=== PATIENT | female | born 1995 ===

== ENCOUNTER 2017-08-24 18:35 | Emergency (ER) | payer BC ==
[2017-08-24 19:03] VITALS: BMI 30.7
--- NOTE | 2017-08-24 19:09 | OBHP ---
Datetime: 08/24/2017 19:06 IP Adm Impression: , intrauterine IP Chief Complaint Other: cramping Admit Comment, IP Provider: at 30.6weeks came with c/o cramping from yesterday,no ctxs, vb, lof +fm.no dysuria.pt had sex few meadows ago obhx primi pmh den med pnv all nkda psh de soc de ve closed a/p at 30+weeks r/o uti ua cont angie and efm cont close obser Pelvic Type - PN: Adequate Extremities - PN: Normal Abdomen - PN: Normal Back - PN: Normal Breast - PN: Normal Lungs - PN: Normal Heart - PN: Normal Thyroid - PN: Normal Neurologic - PN: Normal HEENT - PN: Normal General - PN: Normal FHR - Baseline A Provider: 130 Contraction Comments Provider: none Vital Signs Provider: Reviewed; Within Normal Limits NICHD Variability Prov Fetus A: Moderate 6-25bpm NICHD Accel Fetus A IP Provider: 10X10 FHR Category Provider Fetus A: Category I Dilatation, Provider: 0 Effacement, Provider: 0 Station, Provider: -3 Genitourinary Exam: Normal DTRs - PN: Normal
[2017-08-24] MEDS ORDERED: Lactated Ringer's 1,000 ML IV SCH (19:15)
[2017-08-24 20:11] LABS: SQUAMOUS EPITHIAL 8 /hpf (0-5); URINE AMORPHOUS SEDIMENT OCC /ul (<OCC); URINE BACTERIA RARE (<OCC); URINE BILIRUBIN NEGATIVE (NEGATIVE); URINE BLOOD NEGATIVE (NEGATIVE); URINE CLARITY Hazy (Clear); URINE COLOR Yellow (YELLOW); URINE GLUCOSE (UA) 2+ mg/dL (Normal); URINE LEUKOCYTE ESTERASE NEG Leu/uL (Negative); URINE PROTEIN NEGATIVE (NEGATIVE); URINE UROBILINOGEN NORMAL mg/dL (0.2-1.0)
--- NOTE | 2017-08-24 20:17 | OBDCSUM ---
Datetime: 08/24/2017 20:14 Discharged to, Provider: Home Follow up at, Provider: fátima moran Follow up in weeks, Provider: pmd Disch Activity Restrictions: Minimize stair-climbing; No sexual activity; Nothing in vagina - Interc ourse, tampons, douche Discharge Comment, Provider: ptl given po hydration f/u pmd Discharge Diagnosis Prov Other: 30week cramping nst
[2017-08-25 01:52] VITALS: BP 112/58; PULSE 113
--- NOTE | 2017-08-25 10:57 | OBHP ---
Datetime: 08/24/2017 19:06 Admit Comment, IP Provider: at 30.6weeks came with c/o cramping from yesterday,no ctxs, vb, lof +fm.no dysuria.pt had sex few [place] ago obhx primi pmh den med pnv all nkda psh de soc de ve closed a/p at 30+weeks r/o uti ua cont angie and efm cont close obser ua 2+ glu plan dc home ptl given po hydration f/u pmd dr briceño aware IP Hx Assessment: The History has been Reviewed and is Current
== END 2017-08-24 21:40 | disposition home or self-care (01) ==
LOC: C.EROB 18:35
DX: O26.893 Other specified pregnancy related conditions, third trimester (principal); R10.9 Unspecified abdominal pain; Z3A.30 30 weeks gestation of pregnancy
CPT/HCPCS: 81001; 82948; 99283; J7120

== ENCOUNTER 2017-10-25 10:07 | Inpatient (IN) | payer BC ==
[2017-10-25 10:18] VITALS: BMI 32.9
[2017-10-25] MEDS ORDERED: Sodium Citrate/Citric Acid 15 ml Sol PO ONE (10:33)
[2017-10-25] MEDS ORDERED: Lactated Ringer's 1,000 ML IV SCH (10:45)
--- NOTE | 2017-10-25 10:48 | OBADHP ---
Datetime: 10/25/2017 10:43 Admit Comment, IP Provider: 24 @ 39 4/7 presents for primary section for macrosom ia. POBHx: none PGYN: none PMHx: none PSHx: none Meds: none ALL: NKDA A/P 24 presents for primary section for macrosomia 1) NPO 2) IVF 3) Labs. Pelvic Type - PN: Adequate Extremities - PN: Normal Abdomen - PN: Normal Back - PN: Normal Breast - PN: Normal Lungs - PN: Normal Heart - PN: Normal Thyroid - PN: Normal Neurologic - PN: Normal HEENT - PN: Normal General - PN: Normal FHR - Baseline A Provider: 150 Vital Signs Provider: Reviewed IP Chief Complaint: Uterine contractions; Scheduled Section NICHD Variability Prov Fetus A: Moderate 6-25bpm NICHD Accel Fetus A IP Provider: 15X15 Genitourinary Exam: Normal DTRs - PN: Normal EGA AdmitDate IP: 39.4 IP Adm Impression: Term, intrauterine IP Admit Plan: Admit to unit; Initiate Section protocol Signature: brandon dunne Datetime: 08/24/2017 19:06 IP Chief Complaint Other: cramping Contraction Comments Provider: none IP Hx Assessment: The History has been Reviewed and is Current FHR Category Provider Fetus A: Category I Dilatation, Provider: 0 Effacement, Provider: 0 Station, Provider: -3
[2017-10-25] MEDS ORDERED: Sodium Citrate/Citric Acid 15 ml Sol ONE (10:57)
[2017-10-25] MEDS ORDERED: Oxytocin 20 units in LR 2,000 ML IV ONE (10:57)
[2017-10-25] MEDS ORDERED: ceFAZolin IV 2 gm in Dextrose 2 GM/50 ML BAG IVPB ONE (10:57)
[2017-10-25] MEDS ORDERED: ceFAZolin IV 2 gm in Dextrose 2 GM/50 ML BAG IVPB SCH (11:00)
[2017-10-25 11:01] LABS: BASO % 0.4 % (0.0-2.0); EOS # 0.1 K/uL (0.0-0.7); EOS % 1.1 % (0.0-4.0); HEMOGLOBIN 11.7 g/dL (11.0-16.0); LYMPH # 1.9 K/uL (1.0-4.3); MEAN CELL VOLUME 79.2 fL (81.0-99.0); MEAN CORPUSCULAR HEMOGLOBIN 25.4 pg (27.0-31.0); MEAN CORPUSCULAR HGB CONC 32.1 g/dL (33.0-37.0); MEAN PLATELET VOLUME 9.4 fL (7.2-11.7); MONO # 0.6 K/uL (0.0-0.8); MONO % 5.5 % (0.0-10.0); NRBC % 0.2 % (0.0-2.0); RBC 4.59 Mil/uL (3.80-5.20); RED CELL DISTRIBUTION WIDTH 16.5 % (11.5-14.5); WHITE BLOOD COUNT 11.7 K/uL (4.8-10.8)
[2017-10-25 11:21] LABS: CALCIUM 8.9 mg/dl (8.6-10.4); GFR AFRICAN-AMERICAN > 60; GFR NON-AFRICAN AMERICAN > 60
[2017-10-25 11:22] LABS: BLOOD UREA NITROGEN 9 mg/dL (7-17)
[2017-10-25] MEDS ORDERED: Morphine 1 mg/ml preservative-free Inj(Duramorph) ONE (12:39)
[2017-10-25] MEDS ORDERED: Propofol 10 mg/ml Inj (20 ML) ONE (12:39)
[2017-10-25] MEDS ORDERED: Oxytocin 10 Units/ml Inj ONE (13:04)
--- NOTE | 2017-10-25 13:39 | PCM.SURG1 ---
Surgeon's Initial Post Op Note - Surgeon's Notes Surgeon: Erika Stockton MD Reed Polisher: Betty Petersen MD Type of Anesthesia: Spinal Pre-Operative Diagnosis: Term intrauterien prengancy, 39+ weeks, macrosmia Operative Findings: live female ifnat 10pudn 5 ounces, normal appeairn guteurs, tubes and ovaires b/l, ebl 800ml, pediatriican presnt for delivery. Dr Desmond Petersen was surgical assistnat and presnet ofr entire case adn [facility] in gaining entry, retraction, epxoure, holding the bladder blade, helping to deliver the infnat closing all layers Post-Operative Diagnosis: same as above Operation Performed: Primary low transverse cesearean section Specimen/Specimens Removed: placenta Estimated Blood Loss: EBL {In ML}: 800 Blood Products Given: N/A Drains Used: No Drains Post-Op Condition: Good Date of Surgery/Procedure: 10/25/17 Time of Surgery/Procedure: 12:55
[2017-10-25] MEDS: Simethicone 80 mg Chewtab PO SCH ×3 (14:23→21:59)
--- NOTE | 2017-10-25 15:58 | OBDS ---
DELIVERY PERSONNEL Delivery Doctor: Giovanny Stockton MD Scrub Nurse: Lisa Coffey [employer]BT Manufacturing Sr Engineer: Alondra Mai RN Anesthesiologist: Aleida MATERNAL INFORMATION Delivery Anesthesia: Spinal Medications in Delivery: given by dr navas 20units pit added to 1L bag of 20 units pit Estimated Blood Loss (ml): 800 Placenta Cultured: Yes Maternal Complications: Other Other Maternal Complications: macrosomia RN Comments: liveborn baby girl born via primary c/s Provider Comments: pltcs macromis normla tubes and ovaries and uteurs b/l ebl 800 ml peds presnt weight 10 pounds 5 oucnes LABOR SUMMARY EDC: 10/28/2017 00:00 (Annotations: note: pt is 39.4 weeks) No. Babies in Womb: 1 Attempted: No Labor Anesthesia: None LABOR INFORMATION Reason for Induction: Not Applicable Oxytocin: N/A Group B Beta Strep: Positive (Annotations: Data stored by N on behalf of user) Antibiotics # of Doses: 0 Steroids Given: None Reason Steroids Not Administered: Not Applicable MEMBRANES Membranes Rupture Method: Artificial Rupture of Membranes: 10/25/2017 12:57 Length of Rupture (hrs): 0.02 Amniotic Fluid Color: Clear Amniotic Fluid Amount: Moderate Amniotic Fluid Odor: None STAGES OF LABOR Stage 3 hrs: 0 Stage 3 min: 1 CSECTION DELIVERY Primary Indication: Other Other Primary Indication: macrosomia CSection Urgency: Elective CSection Incidence: Primary Labor: N/A Elective: Elective CSection Incision: Lower Uterine Transverse BABY A INFORMATION Infant Delivery Date/Time: 10/25/2017 12:58 Method of Delivery: Born in Route : No : N/A Forceps: N/A Vacuum Extraction: N/A Shoulder Dystocia : No SHOULDER DYSTOCIA BABY A Infant Delivery Date/Time: 10/25/2017 12:58 PRESENTATION/POSITION BABY A Presentation: Cephalic Cephalic Presentation: Vertex Vertex Position: Right Occipital Anterior Breech Presentation: N/A PLACENTA INFORMATION BABY A Placenta Delivery Time : 10/25/2017 12:59 Placenta Method of Delivery: Manual Removal Placenta Status: Delivered SCORES BABY A Heart Rate 1 min: >100 bpm Resp Effort 1 min: Good Cry Reflex Irritability 1 min: Cough or Sneeze or Pulls Away Muscle Tone 1 min: Active Motion Color 1 min: Body [place], Extremities Blue SCORE 1 MIN: 9 Heart Rate 5 min: >100 bpm Resp Effort 5 min: Good Cry Reflex Irritability 5 min: Cough or Sneeze or Pulls Away Muscle Tone 5 min: Active Motion Color 5 min: Body [place], Extremities Blue SCORE 5 MIN: 9 INFANT INFORMATION BABY A Gestational Age at Delivery: 39.4 Gestational Status: Term Infant Outcome : Liveborn Infant Condition : Stable Sex: Female IDENTIFICATION/MEDS BABY A ID Band Number: [id number] ID Band Location: Left Leg; Left Arm Sensor Applied: Yes Sensor Number: [id number] Sensor Location : Cord Clamp Vitamin K Given : Left Thigh Erythromycin Given: Given Both Eyes WEIGHT/LENGTH BABY A Infant Birthweight (gms): 4680 Weight (lb): 10 Weight (oz): 5 Infant Length Inches: 20.50 Infant Length cms: 52.1 CORD INFORMATION BABY A No. Cord Vessels: 3 Nuchal Cord : Around Neck x1, Loose Cord Blood Taken: Yes Suction: Mouth; Nose WEIGHT/LENGTH BABY B Infant Length Inches: 20.50 Infant Length cms: 52.07
[2017-10-25 17:02] LABS: RAPID PLASMA REAGIN NONREACTIVE (NONREACTIVE)
[2017-10-25] MEDS: ceFAZolin IV 1 gm in Dextrose 1 GM/50 ML BAG IVPB SCH (21:54)
--- NOTE | 2017-10-26 02:42 | OP ---
PROCEDURE DATE: 10/25/2017 SURGEON: Erika Stockton MD PRECISION STRUCTURAL METAL FITTER: Desmond Petersen MD PREOPERATIVE DIAGNOSIS: Term intrauterine at 39 weeks, macrosomia. POSTOPERATIVE DIAGNOSIS: Term intrauterine at 39 weeks, macrosomia. OPERATIVE FINDINGS: Live female , weight is 10 pounds 9 ounces. Normal-appearing uterus, tubes, and ovaries bilaterally. Project Drilling Engineer present for delivery. Dr. Desmond Petersen, was surgical assist, who was present for the entire case and assisted in gaining entry, retraction, exposure, holding the bladder blade, helping to deliver the , closing all layers. OPERATION PERFORMED: Primary low transverse section. SPECIMEN REMOVED: Placenta. ESTIMATED BLOOD LOSS: 800 mL. BLOOD PRODUCTS: None. COMPLICATIONS: None. DESCRIPTION OF PROCEDURE: The patient was taken to the operating room where she was given spinal anesthesia. Once found to be adequate, she was positioned on the operating table in dorsal supine position. The patient was then prepped and draped in the usual sterile fashion. The patient was given preoperative prophylactic antibiotics. A Pfannenstiel skin incision was made with a scalpel and carried in line to the underlying fascia with Bovie. The fascia was incised in the midline, and the incision was extended laterally with the Bovie. The inferior aspect of the fascial incision was grasped with Allis and Ambika clamps, and the underlying rectus muscles were dissected off bluntly. Attention was then turned to the superior aspect with the similar fashion. It was grasped with Allis and Ambika clamps, and the underlying rectus muscles were dissected off bluntly. The rectus muscles were then bluntly in the midline. The peritoneum identified and entered in a clear space. The incision was extended laterally and superiorly until there was good visualization of the bladder. The lower end of the Gina was then reinserted. The vesicouterine peritoneum was incised in a transverse fashion using Metzenbaum scissors. Bladder flap was created and lower end of the [place] was then reinserted. Lower uterine segment was incised in transverse fashion. The uterine incision was extended laterally bluntly. Amniotic membranes were then ruptured. Clear fluid was noted. The surgeon's hand entered the uterine cavity. The infant's head was delivered atraumatically. There was loose nuchal cords that was easily reduced followed by delivering of the shoulder, followed by delivery of the body. Both oral and nasal passages of the baby were bulb suctioned. Umbilical cord was clamped and cut. Baby was handed off to the awaiting glue clamp operator. Cord blood and cord gases were collected and sent x2. The placenta was then delivered manually. The uterus was exteriorized, cleared of clots and debris. The uterine incision was repaired with 0 Vicryl in a running continuous locked fashion. A second layer of the same suture was used to close the uterus in a running imbricated manner. There was good hemostasis at the uterine incision site. There were normal tubes and ovaries bilaterally. The uterus was returned to the abdomen. Paracolic gutters were cleared of all clots and debris. There was good hemostasis at the uterine incision site. The peritoneum was reapproximated with 2-0 Chromic in an interrupted manner. The rectus was reapproximated and closed with 2-0 Chromic in an interrupted manner. The fascia was reapproximated with 0 Vicryl in a running continuous fashion. Subcuticular layers were closed with 2-0 plain in an interrupted manner. The skin was reapproximated and closed with 3-0 Monocryl in a running subcuticular fashion . At the end of the procedure, all needles, sponge, and instrument counts were noted to be correct x2. The patient tolerated the procedure well and was transferred to the recovery room in stable condition. Erika Stockton MD
[2017-10-26] MEDS: ceFAZolin IV 1 gm in Dextrose 1 GM/50 ML BAG IVPB SCH ×2 (05:07→14:55)
[2017-10-26] MEDS: Oxycodone/Acetaminophen 5/325 mg Tab PO PRN ×3 (06:42→18:55)
[2017-10-26 08:11] LABS: BASO % 0.4 % (0.0-2.0); EOS # 0.1 K/uL (0.0-0.7); EOS % 0.9 % (0.0-4.0); HEMOGLOBIN 10.3 g/dL (11.0-16.0); LYMPH # 1.3 K/uL (1.0-4.3); LYMPH % 11.1 % (20.0-40.0); MEAN CELL VOLUME 79.5 fL (81.0-99.0); MEAN CORPUSCULAR HEMOGLOBIN 26.3 pg (27.0-31.0); MEAN CORPUSCULAR HGB CONC 33.1 g/dL (33.0-37.0); MEAN PLATELET VOLUME 9.2 fL (7.2-11.7); MONO # 0.6 K/uL (0.0-0.8); MONO % 5.3 % (0.0-10.0); NEUT % 82.3 % (50.0-75.0); RBC 3.91 Mil/uL (3.80-5.20); RED CELL DISTRIBUTION WIDTH 16.7 % (11.5-14.5); WHITE BLOOD COUNT 12.2 K/uL (4.8-10.8)
[2017-10-26 08:35] LABS: ALBUMIN 2.7 g/dL (3.5-5.0); ALT/SGPT 18 U/L (9-52); AST/SGOT 46 U/L (14-36); BLOOD UREA NITROGEN 11 mg/dL (7-17); CALCIUM 8.2 mg/dl (8.6-10.4); GFR AFRICAN-AMERICAN > 60; GFR NON-AFRICAN AMERICAN > 60
[2017-10-26] MEDS: Prenatal Multivit/Folic Acid/Iron Tab PO SCH (10:17)
[2017-10-26] MEDS: Simethicone 80 mg Chewtab PO SCH ×4 (10:17→22:54)
[2017-10-26] MEDS ORDERED: Bisacodyl 5mg EC Tab PO ONE (13:35)
[2017-10-27] MEDS: Oxycodone/Acetaminophen 5/325 mg Tab PO PRN ×3 (00:47→18:15)
[2017-10-27] MEDS: Prenatal Multivit/Folic Acid/Iron Tab PO SCH (10:17)
[2017-10-27] MEDS: Simethicone 80 mg Chewtab PO SCH ×4 (10:17→22:10)
[2017-10-27] MEDS ORDERED: Magnesium Hydroxide Susp 30 ml UD PO ONE (13:41)
--- NOTE | 2017-10-27 16:31 | CP.PCM.PN ---
Subjective - Date & Time of Evaluation Date of Evaluation: 10/26/17 Time of Evaluation: 07:00 - Subjective Subjective: delayed entry: pt seen and examiend reports [facility], up out of bed, tolerating diet, not pasisng faltus, small vaginal bleeding, no fever, chils, naues, vomitng Objective - Vital Signs/Intake and Output Vital Signs (last 24 hours): Temp Pulse Resp BP Pulse Ox 98 F 85 20 112/79 99 10/27/17 16:00 10/27/17 16:00 10/27/17 16:00 10/27/17 16:00 10/27/17 16:00 - Medications Medications: Current Medications Docusate Sodium (Colace) 100 mg PO BID [facility] Last Admin: 10/27/17 10:17 Dose: 100 mg Lactated Ringer's (Lactated Ringer's) 1,000 mls @ 125 mls/hr IV .Q8H [facility] Last Admin: 10/25/17 10:45 Dose: 125 mls/hr Ibuprofen (Motrin Tab) 600 mg PO Q6H PRN PRN Reason: Pain, Mild (1-3) Last Admin: 10/27/17 10:17 Dose: 600 mg Oxycodone/Acetaminophen (Percocet 5/325 Mg Tab) 1 tab PO Q4H PRN PRN Reason: Pain, moderate (4-7) Stop: 10/28/17 13:36 Last Admin: 10/27/17 14:31 Dose: 1 tab Oxycodone/Acetaminophen (Percocet 5/325 Mg Tab) 2 tab PO Q4H PRN PRN Reason: Pain, severe (8-10) Stop: 10/28/17 13:36 Last Admin: 10/27/17 00:47 Dose: 2 tab Multivit/Folic Acid/Iron () 1 tab PO DAILY [facility] Last Admin: 10/27/17 10:17 Dose: 1 tab Sennosides (Senokot Tab) 17.2 mg PO HS [facility] Last Admin: 10/26/17 22:54 Dose: 17.2 mg Simethicone (Mylicon Chew Tab) 80 mg PO QID [facility] Last Admin: 10/27/17 14:30 Dose: 80 mg - Labs Labs: 10/26/17 08:02 10/26/17 08:02 - Constitutional Appears: Well, Non-toxic - Head Exam Head Exam: ATRAUMATIC - ENT Exam ENT Exam: Mucous Membranes Moist - Neck Exam Neck Exam: Full ROM - Respiratory Exam Respiratory Exam: Clear to Ausculation Bilateral - Cardiovascular Exam Cardiovascular Exam: REGULAR RHYTHM, +S1, +S2 - GI/Abdominal Exam GI & Abdominal Exam: Soft, Tenderness, Normal Bowel Sounds Additional comments: TTP Over incsin c/d/i , no ugarid, no reboudn no rigfidty - Exam Additional comments: moderate lochia, non foul smelling - Extremities Exam Extremities Exam: absent: Calf Tenderness, Full ROM, Joint Swelling, Normal Capillary Refill, Normal Inspection, Pedal Edema, Tenderness Assessment and Plan (1) Delivery by section of full-term infant Assessment & Plan: 1 Pain managment: precoet/motrin 2. d/c [place] 3. advsnced diet regulra 4. encourage mabiton / breast feeding 5. am labs Status: Acute
--- NOTE | 2017-10-27 16:33 | CP.PCM.PN ---
Subjective - Date & Time of Evaluation Date of Evaluation: 10/27/17 Time of Evaluation: 13:00 - Subjective Subjective: pt seen and examined and rpeortrs pain over incisoin contorlled iwth motrin. pt ambuaitng, voidng, not passing flaut, tolerating regular diet, breat feeding pt denies any fever, chills, nause, vomiting, cp, sob Objective - Vital Signs/Intake and Output Vital Signs (last 24 hours): Temp Pulse Resp BP Pulse Ox 98 F 85 20 112/79 99 10/27/17 16:00 10/27/17 16:00 10/27/17 16:00 10/27/17 16:00 10/27/17 16:00 - Medications Medications: Current Medications Docusate Sodium (Colace) 100 mg PO BID [facility] Last Admin: 10/27/17 10:17 Dose: 100 mg Lactated Ringer's (Lactated Ringer's) 1,000 mls @ 125 mls/hr IV .Q8H [facility] Last Admin: 10/25/17 10:45 Dose: 125 mls/hr Ibuprofen (Motrin Tab) 600 mg PO Q6H PRN PRN Reason: Pain, Mild (1-3) Last Admin: 10/27/17 10:17 Dose: 600 mg Oxycodone/Acetaminophen (Percocet 5/325 Mg Tab) 1 tab PO Q4H PRN PRN Reason: Pain, moderate (4-7) Stop: 10/28/17 13:36 Last Admin: 10/27/17 14:31 Dose: 1 tab Oxycodone/Acetaminophen (Percocet 5/325 Mg Tab) 2 tab PO Q4H PRN PRN Reason: Pain, severe (8-10) Stop: 10/28/17 13:36 Last Admin: 10/27/17 00:47 Dose: 2 tab Multivit/Folic Acid/Iron () 1 tab PO DAILY [facility] Last Admin: 10/27/17 10:17 Dose: 1 tab Sennosides (Senokot Tab) 17.2 mg PO HS [facility] Last Admin: 10/26/17 22:54 Dose: 17.2 mg Simethicone (Mylicon Chew Tab) 80 mg PO QID [facility] Last Admin: 10/27/17 14:30 Dose: 80 mg - Labs Labs: 10/26/17 08:02 10/26/17 08:02 - Constitutional Appears: Well, Non-toxic - Head Exam Head Exam: ATRAUMATIC, NORMAL INSPECTION - Eye Exam Eye Exam: EOMI, Normal appearance - ENT Exam ENT Exam: Mucous Membranes Moist - Neck Exam Neck Exam: Full ROM - Respiratory Exam Respiratory Exam: Clear to Ausculation Bilateral, NORMAL BREATHING PATTERN - Cardiovascular Exam Cardiovascular Exam: +S1, +S2 - GI/Abdominal Exam GI & Abdominal Exam: Soft, Normal Bowel Sounds Additional comments: no guarding, no rebound tenderness no rigidity - Rectal Exam Rectal Exam: NORMAL INSPECTION Additional comments: no uterien tendner mnimall lochia, non foul smelling incison c/d/ih ealing well, +Steri strips - Extremities Exam Extremities Exam: absent: Calf Tenderness, Full ROM, Joint Swelling, Normal Capillary Refill, Normal Inspection, Pedal Edema, Tenderness Additional comments: negative homans sign Assessment and Plan (1) Delivery by section of full-term infant Assessment & Plan: 1. Pain managment 2. regualr diet 3. Bowel regiment: simethicone, milk of magnesia 4. abdominla binder, incentive spirometer 5. encourage breast feeding Status: Acute
[2017-10-28] MEDS: Oxycodone/Acetaminophen 5/325 mg Tab PO PRN ×2 (02:21→10:29)
--- NOTE | 2017-10-28 02:25 | OBDCSUM ---
Datetime: 10/28/2017 02:22 Discharged to, Provider: Home Follow up at, Provider: dr briceño Disch Instr Activity: Normal activity Disch Instr Diet: Regular Discharge Instructions, Provider: Routine instructions given Discharge Diagnosis, Provider: Term Delivered Discharge Time: 10/28/2017 11:00 Follow up in weeks, Provider: 1 week Disch Referrals: None Contraception discussed, Prov: Yes Disch Activity Restrictions: No sexual activity; Nothing in vagina - [place], tampons, douche Discharge Comment, Provider: precautions givne Contraception after Delivery: Not Planning to Use
--- NOTE | 2017-10-28 02:25 | OBPPN ---
Datetime: 10/28/2017 02:21 PP Pain Prov: Within normal limits PP Nausea Prov: Denies PP Flatus Prov: Yes PP BM Prov: No PP Breasts Prov: Normal PP Heart Prov: Normal PP Lungs Prov: Normal PP Abdomen/Uterus Prov: Normal PP Lochia Prov: Normal PP Vulva/Perineum Prov: Normal PP CVA Tenderness Prov: Normal PP Extremities Prov: Normal PP C/S Incision Prov: Normal PP Progress Prov: Normal PP Comments Phys Exam Prov: incision c/d/ih healin well PP Impression Prov: Normal progression PP Progress Note Prov: pt seen adn emxained, sleeping pian contorlled ambitng, toleraitn gdiet, no n/v, f/c passing gas vss pe sea aobve a/p s/p PLTCS POD #3 anticpd dc his morning f/u 1 week perciotan givne Vital Signs Provider PP: Reviewed; Within Normal Limits
[2017-10-28 04:15] VITALS: RESP 18
[2017-10-28 08:24] VITALS: BP 113/73; PULSE 74; TEMP 97.7; O2SAT 100
[2017-10-28] MEDS: Simethicone 80 mg Chewtab PO SCH (10:26)
[2017-10-28] MEDS: Prenatal Multivit/Folic Acid/Iron Tab PO SCH (10:26)
== END 2017-10-28 13:45 | disposition home or self-care (01) | DRG 766 ==
LOC: C.EROB 10:07 → C.4D 10:27 → C.4M 16:34
PROVIDERS: ADMIT Obstetrics & Gynecology; ATTEND Obstetrics & Gynecology
PROC: 10D00Z1 Extraction of Products of Conception, Low, Open Approach (ICD-10-PCS; principal; 2017-10-25)
DX: O36.63X0 Maternal care for excessive fetal growth, third trimester, not applicable or unspecified (principal); O69.81X0 Labor and delivery complicated by cord around neck, without compression, not applicable or unspecified; O99.824 Streptococcus B carrier state complicating childbirth; Z3A.39 39 weeks gestation of pregnancy; Z37.0 Single live birth